=== PATIENT | female | born 1940 | race African-American/Black ===

== ENCOUNTER 2016-05-24 14:37 | Emergency (ER) | payer MEDICARE, OTHER ==
[~2016-05-24] VITALS: Wt 65.0 kg
[~2016-05-24 14:37] MED LIST: IBUP-725
[2016-05-24] MEDS ORDERED: SOD CHLORIDE 0.9% 1,000 ML IV STA (15:15)
[2016-05-24] MEDS ORDERED: ONDANSETRON 4 MG INJ IV STA (15:15)
[2016-05-24] MEDS ORDERED: ALBUTEROL 0.5% (NEB) 2.5 MG/0.5 ML AMP INH STA (15:15)
--- NOTE | 2016-05-24 15:36 | RADRPT ---
PROCEDURE: XR Chest. CLINICAL INDICATION: Abdominal pain. TECHNIQUE: Single frontal view. COMPARISON: None. FINDINGS: The lungs are clear. The heart size is normal. There is calcification in the aorta consistent with atherosclerosis. The re is a calcified right paratracheal lymph node measuring 3 cm in diameter, probably benign. There is no pleural effusion. There is no pneumothorax. IMPRESSION: 1. Atherosclerosis. 2. Clear lungs. 3. Calcified right paratracheal lymph node. Probably benign. 4. Otherwise normal chest x-ray. RPTAT: QQ .Dheeraj Whalen MD, Date Time Electronically viewed and signed by .Dheeraj Whalen MD, on 05/24/2016 15:36 .R/
[2016-05-24 15:38] LABS: BASOPHIL # 0.1 10^3/ul (0.0-0.1); CONDITION 1; EOSINOPHILS # 0.1 10^3/ul (0.0-0.5); EOSINOPHILS % 2.9 % (0.0-7.0); HEMATOCRIT 37.2 % (37.0-47.0); HEMOGLOBIN 12.4 g/dl (12.0-16.0); LH ANALYZER COMMENTS 1; LYMPHOCYTES # 1.6 10^3/ul (0.8-2.9); LYMPHOCYTES % 31.4 % (15.0-51.0); MEAN CORPUSCULAR HGB CONC 33.5 g/dl (32.0-37.0); MEAN CORPUSCULAR VOLUME 89.6 fl (82.0-101.0); MEAN PLATELET VOLUME 8.3 fl (7.4-10.4); MONOCYTE # 0.5 10^3/ul (0.3-0.9); MONOCYTES % 9.5 % (0.0-11.0); NEUTROPHIL # 2.8 10^3/ul (1.6-7.5); NEUTROPHILS % 55.2 % (39.0-77.0); PLATELET COUNT 184 10^3/UL (140-440); RED BLOOD COUNT 4.15 10^6/ul (4.20-5.40); RED CELL DISTRIBUTION WIDTH 14.9 % (11.5-14.5); UNCORRECTED WBC 5.1 10^3/ul (4.8-10.8); WHITE BLOOD COUNT 5.1 10^3/ul (4.8-10.8)
[2016-05-24 15:50] LABS: ALBUMIN 3.9 g/dl (3.3-4.9); CHLORIDE 107 mmol/L (97-110)
[2016-05-24 15:51] LABS: POTASSIUM 3.9 mmol/L (3.5-5.1); SODIUM 144 mmol/L (135-144)
[2016-05-24 15:53] LABS: ALANINE AMINOTRANSFERASE 22 IU/L (13-69); ALBUMIN/GLOBULIN RATIO 1.21; ALKALINE PHOSPHATASE 80 IU/L (42-121); ANION GAP 15 (8-16); ASPARTATE AMINO TRANSFERASE 23 IU/L (15-46); BILIRUBIN,INDIRECT 0.1 mg/dl (0-1.1); BILIRUBIN,TOTAL 0.1 mg/dl (0.2-1.3); BLOOD UREA NITROGEN 10 mg/dl (7-20); CARBON DIOXIDE 26 mmol/L (21-31); CREATININE 0.84 mg/dl (0.44-1.00); TOTAL PROTEIN 7.1 g/dl (6.1-8.1)
[2016-05-24 15:54] LABS: CALCIUM 9.3 mg/dl (8.4-10.2); GLUCOSE 89 mg/dl (70-220)
[2016-05-24 16:03] LABS: B-TYPE NATRIURETIC PEPTIDE 92 PG/ML (0-450)
[2016-05-24 16:06] LABS: TROPONIN-I < 0.012 ng/ml (0.00-0.12)
--- NOTE | 2016-05-24 16:56 | ERD ---
ER Documentation Chief Complaint Date/Time DATE: 05/24/16 TIME: 16:55 Chief Complaint COUGH AND CONGESTION WITH INTERMITTENT FEVERS FOR 1 WEEK HPI 75-year-old woman with multiple complaints including nasal congestion, rhinorrhea, cough, tactile fevers, generalized weakness, and suprapubic discomfort 1 week. She has had no vomiting or diarrhea, no chest pain or shortness of breath, no recent travel or antibiotic use. Patient denies dizziness or loss of consciousness. Patient denies weight loss, melena, or bright red blood per rectum. ROS All systems reviewed and are negative except as per history of present illness. Medications Home Meds Active Scripts Ibuprofen* (Motrin*) 600 Mg Tab, 600 MG PO Q8 for PAIN AND/OR INFLAMMATION, #30 TAB Prov:VENKATESH MELISSA MD 05/24/16 Cephalexin* (Keflex*) 500 Mg Capsule, 500 MG PO TID for 7 Days, CAP Prov:VENKATESH MELISSA MD 05/24/16 Discontinued Reported Medications Ibuprofen (Motrin) 400 Mg Tablet 09/30/09 [None] No Conflict Check 08/19/09 Allergies Allergies: Coded Allergies: Penicillins (Unverified Allergy, Unknown, 05/24/16) Sulfa (Sulfonamide Antibiotics) (Unverified Allergy, Unknown, 05/24/16) PMhx/Soc Generally healthy denies hypertension, diabetes, coronary artery disease History of Surgery: Yes (PITUATARY TUMOR REMOVED 2003,) Anesthesia Reaction: No Hx Neurological Disorder: No Hx Respiratory Disorders: No Hx Cardiac Disorders: No Hx Psychiatric Problems: No Hx Miscellaneous Medical Probl: Yes (PITUATARY TUMOR) Hx Alcohol Use: No Hx Substance Use: No Hx Tobacco Use: No Smoking Status: Never smoker FmHx Family History: No diabetes Physical Exam Vitals Vital Signs Date Time Temp Pulse Resp B/P Pulse Ox O2 Delivery O2 Flow Rate FiO2 05/24/16 17:37 98.5 81 20 128/89 98 Room Air 05/24/16 16:00 98.7 78 20 151/75 100 Nasal Cannula 2.0 05/24/16 15:58 71 20 100 Nasal Cannula 2.0 05/24/16 15:36 Nasal Cannula 2.0 05/24/16 15:36 Nasal Cannula 2 05/24/16 14:47 98.6 78 20 152/68 98 Physical Exam GENERAL: Well-developed, well-nourished, dehydrated HEENT: Dry mucous membranes, pink conjunctiva, no cervical spine tenderness or step-off deformities, no goiter, no jaundice or icterus, extraocular movements intact without pain. No submandibular induration, and no pharyngeal erythema NEURO: Alert and oriented 3, cranial nerves II through XII intact bilaterally, pupils equal round reactive to light, no focal deficits or facial asymmetry, sensation intact distally Strength 5/5 in upper and lower extremities bilaterally CARDIAC: Regular rate and rhythm, no murmurs rubs or gallops LUNGS: Clear bilaterally no wheezing crackles or stridor ABDOMEN: Soft nontender, no guarding, no rigidity, no rebound, no psoas sign no obturator sign. Normoactive bowel sounds SKIN: Warm and dry to touch, no abrasions, contusions, or hematomas, no lacerations, no ecchymosis, no target lesions, and without ulcers EXTREMITIES: No clubbing cyanosis or edema, calves are bilaterally symmetrical, no Homans sign, no popliteal cord sign. Distal pulses equal and bilateral PSYCH: Normal affect without agitation or irritability Result Diagram: 05/24/16 1525 05/24/16 1525 Results 24 hrs Laboratory Tests Test 05/24/16 15:25 05/24/16 17:30 Alanine Aminotransferase (ALT/SGPT) 22IU/L Albumin 3.9g/dl Albumin/Globulin Ratio 1.21 Alkaline Phosphatase 80IU/L Anion Gap 15 Aspartate Amino Transf (AST/SGOT) 23IU/L B-Type Natriuretic Peptide 92PG/ML Basophils # 0.110^3/ul Basophils % 1.0% Blood Morphology Comment Blood Urea Nitrogen 10mg/dl Calcium Level 9.3mg/dl Carbon Dioxide Level 26mmol/L Chloride Level 107mmol/L Creatinine 0.84mg/dl Direct Bilirubin 0.00mg/dl Eosinophils # 0.110^3/ul Eosinophils % 2.9% Globulin 3.20g/dl Glucose Level 89mg/dl Hematocrit 37.2% Hemoglobin 12.4g/dl Indirect Bilirubin 0.1mg/dl Lipase 64U/L Lymphocytes # 1.610^3/ul Lymphocytes % 31.4% Mean Corpuscular Hemoglobin 30.0pg Mean Corpuscular Hemoglobin Concent 33.5g/dl Mean Corpuscular Volume 89.6fl Mean Platelet Volume 8.3fl Monocytes # 0.510^3/ul Monocytes % 9.5% Neutrophils # 2.810^3/ul Neutrophils % 55.2% Nucleated Red Blood Cells # 0.010^3/ul Nucleated Red Blood Cells % 0.0/100WBC Platelet Count 68755^3/UL Potassium Level 3.9mmol/L Red Blood Count 4.1510^6/ul Red Cell Distribution Width 14.9% Sodium Level 144mmol/L Total Bilirubin 0.1mg/dl Total Protein 7.1g/dl Troponin I < 0.012ng/ml White Blood Count 5.110^3/ul Urine Bacteria FEW Urine Bilirubin NEGATIVE Urine Clarity SLIGHTLY CLOUDY Urine Color LT. YELLOW Urine Glucose NEGATIVE% Urine Hemoglobin TRACE Urine Ketones NEGATIVE Urine Leukocyte Esterase 1+ Urine Microscopic RBC 0-2/HPF Urine Microscopic WBC 10-25/HPF Urine Nitrite NEGATIVE Urine Specific [place] <=1.005 Urine Squamous Epithelial Cells MANY Urine Total Protein NEGATIVE Urine Urobilinogen 0.2 E.U./dL Urine pH 5.5 Current Medications Medications (Trade) Dose Ordered Sig/Peyman Route PRN Reason Start Time Stop Time Status Last Admin Dose Admin Albuterol 10 mg 10 mg ONCE STAT INH 05/24/16 15:15 05/24/16 15:17 DC 05/24/16 15:57 Sodium Chloride (NS) 1,000 ml @ 1,000 mls/hr Q1H STAT IV 05/24/16 15:15 05/24/16 16:14 DC 05/24/16 15:35 Ondansetron HCl 4 mg 4 mg ONCE STAT IV 05/24/16 15:15 05/24/16 15:17 DC 05/24/16 15:35 Ceftriaxone Sodium (Rocephin) 50 ml @ 100 mls/hr ONCE ONCE IVPB 05/24/16 18:00 05/24/16 18:29 DC 05/24/16 18:24 Procedures/MDM IV line was established patient was placed on quality assurance monitor body rhythm strip revealed a sinus rhythm at about 60 bpm with upright P and T waves. Patient was afebrile. I administered 1 L normal saline intravenously, albuterol 10 mg via nebulizer for cough, and Zofran 4 mg IV with good response. EKG performed, read by me: 63 bpm, normal sinus rhythm, normal axis, no acute ST segment changes, narrow QRS complex, with good R-wave progression in precordial leads. One AP view of the chest performed, read by me reveals no acute infiltrates, normal mediastinum, sharp costophrenic and cardiac borders, no air under the diaphragm. Otherwise unremarkable chest x-ray. CBC was unremarkable, electrolytes normal, liver function tests were normal, troponin was negative. Urine analysis was concerning for early urinary tract infection. I treated the patient here with ceftriaxone 1 g IV 1. I recommended inpatient management although patient preferred oral antibiotics. She stated she would follow-up with her PMD, which I agreed to. Influenza AB swabs were negative. Differential diagnoses considered, included but not limited to acute coronary syndrome, pulmonary embolism, aortic dissection, abdominal aortic aneurysm, sepsis, stroke, meningitis, encephalitis, pneumonia, appendicitis, cholecystitis , bowel obstruction, pyelonephritis, nephrolithiasis, cystitis, as well as metabolic, hematologic, and electrolyte abnormalities. As well as abscess, cellulitis, fractures, and dislocations. Patient feels much better at this time, and vital signs are normal, symptoms have improved. I did give strict instructions to return to the ED if symptoms continue or worsen, patient will otherwise follow-up with primary care physician. Patient understood instructions and agreed to plan. Departure Diagnosis: Primary Impression: URI (upper respiratory infection) URI type: acute nasopharyngitis (common cold) Qualified Code: J00 - Acute nasopharyngitis Additional Impressions: Dehydration UTI (urinary tract infection) Urinary tract infection type: acute cystitis Hematuria presence: without hematuria Qualified Code: N30.00 - Acute cystitis without hematuria Condition: VENKATESH Sheppard MD May 24, 2016 16:56
[2016-05-24 17:47] LABS: ADD UMIC YES; URINE BILIRUBIN (Dip) NEGATIVE (NEGATIVE); URINE BLOOD (Dip) TRACE (NEGATIVE); URINE COLOR LT. YELLOW (YELLOW); URINE GLUCOSE (Dip) NEGATIVE (NEGATIVE); URINE KETONES (Dip) NEGATIVE (NEGATIVE); URINE LEUKOCYTE ESTERASE (Dip) 1+ (NEGATIVE); URINE NITRITE (Dip) NEGATIVE (NEGATIVE); URINE TOTAL PROTEIN (Dip) NEGATIVE (NEGATIVE); URINE UROBILINOGEN (Dip) 0.2 E.U./dL (0.1-1.0)
[2016-05-24 17:57] LABS: BACTERIA,URINE FEW; SQUAMOUS EPITHELIAL CELL,UR MANY; URINE RBCS 0-2 /HPF (0)
[2016-05-24] MEDS ORDERED: CEFTRIAXONE 1 GM/50 ML (PMX) 50 ML IVPB ONE (18:00)
[2016-05-24] MEDS ORDERED: CEPH-443 PO (18:06)
[2016-05-24] MEDS ORDERED: IBUP-1542 PO (18:06)
[2016-05-24 18:55] VITALS: BP 141/77; PULSE 64; RESP 16; TEMP 98.7
== END 2016-05-24 19:02 | disposition home or self-care (01) ==
LOC: E/R 14:37
DX: J00 Acute nasopharyngitis [common cold] (principal); E86.0 Dehydration; N30.00 Acute cystitis without hematuria; R06.02 Shortness of breath
CPT/HCPCS: 36415; 71010; 80053; 81001; 83690; 83880; 84484; 85025; 87400; 93005; 94644; 96374; 96375; 99285; J0696; J2405; J7030; 81003

== ENCOUNTER 2016-09-20 12:33 | Inpatient (IN) | payer MEDICARE, OTHER ==
[~2016-09-20] VITALS: Ht 165.1 cm; Wt 71.5 kg
[~2016-09-20 12:33] MED LIST changes: +CEPH-443 PO; +IBUP-1542 PO; -IBUP-725
[2016-09-20] MEDS ORDERED: KETOROLAC 15 MG INJ IV STA (13:11)
[2016-09-20] MEDS ORDERED: SOD CHLORIDE 0.9% 500 ML IV STA (13:11)
--- NOTE | 2016-09-20 13:24 | ERA ---
ER Documentation Chief Complaint Date/Time DATE: 09/20/16 TIME: 13:23 Chief Complaint cp x 2 days; sob; nausea HPI 75-year-old woman presents with pressure-like chest pain radiating down the medial aspect of the right arm 2 days. She states the pain is constant associated with intermittent nausea and shortness of breath. She denies cough, no calf or leg swelling, no fevers or chills, no vomiting or diarrhea. Patient denies similar episodes of pain and has never had a cardiac workup. ROS All systems reviewed and are negative except as per history of present illness. Medications Home Meds Reported Medications Aspirin (Low Dose Aspirin) 81 Mg Tablet.dr, 81 MG PO DAILY, #30 TAB 09/20/16 Lisinopril* (Lisinopril*) 5 Mg Tablet, 5 MG PO DAILY, #30 TAB 09/20/16 Alprazolam* (Xanax*) 0.25 Mg Tablet, 0.25 MG PO THREE TIMES A WEEK Y for ANXIETY , TAB 09/20/16 Discontinued Scripts Ibuprofen* (Motrin*) 600 Mg Tab, 600 MG PO Q8 for PAIN AND/OR INFLAMMATION, #30 TAB Prov:VENKATESH MELISSA MD 05/24/16 Cephalexin* (Keflex*) 500 Mg Capsule, 500 MG PO TID for 7 Days, CAP Prov:VENKATESH MELISSA MD 05/24/16 Allergies Allergies: Coded Allergies: Penicillins (Unverified Allergy, Unknown, 09/20/16) Sulfa (Sulfonamide Antibiotics) (Unverified Allergy, Unknown, 09/20/16) PMhx/Soc Sarcoidosis, hepatic hemangiomas, lung nodule, previous pituitary tumor, breast cysts, hypertension History of Surgery: Yes (PITUATARY TUMOR REMOVED 2003,) Anesthesia Reaction: No Hx Neurological Disorder: No Hx Respiratory Disorders: No Hx Cardiac Disorders: No Hx Psychiatric Problems: No Hx Miscellaneous Medical Probl: Yes (PITUATARY TUMOR) Hx Alcohol Use: No Hx Substance Use: No Hx Tobacco Use: No Smoking Status: Never smoker FmHx Family History: No diabetes Physical Exam Vitals Vital Signs Date Time Temp Pulse Resp B/P Pulse Ox O2 Delivery O2 Flow Rate FiO2 09/20/16 13:10 70 18 130/66 99 Room Air 09/20/16 12:38 97.8 83 18 132/61 98 Physical Exam GENERAL: Well-developed, well-nourished, well-hydrated, in no apparent distress , looks nontoxic in appearance HEENT: Moist mucous membranes, pink conjunctiva, no cervical spine tenderness or step-off deformities, no goiter, no jaundice or icterus, extraocular movements intact without pain. No submandibular induration, and no pharyngeal erythema NEURO: Alert and oriented 3, cranial nerves II through XII intact bilaterally, pupils equal round reactive to light, no focal deficits or facial asymmetry, sensation intact distally Strength 5/5 in upper and lower extremities bilaterally CARDIAC: Regular rate and rhythm, no murmurs rubs or gallops LUNGS: Clear bilaterally no wheezing crackles or stridor ABDOMEN: Soft nontender, no guarding, no rigidity, no rebound, no psoas sign no obturator sign. Normoactive bowel sounds SKIN: Warm and dry to touch, no abrasions, contusions, or hematomas, no lacerations, no ecchymosis, no target lesions, and without ulcers EXTREMITIES: No clubbing cyanosis or edema, calves are bilaterally symmetrical, no Homans sign, no popliteal cord sign. Distal pulses equal and bilateral PSYCH: Appears anxious Result Diagram: 09/20/16 1313 09/20/16 1313 Results 24 hrs Laboratory Tests Test 09/20/16 13:13 White Blood Count 3.410^3/ul Red Blood Count 4.2410^6/ul Hemoglobin 12.4g/dl Hematocrit 38.5% Mean Corpuscular Volume 90.8fl Mean Corpuscular Hemoglobin 29.2pg Mean Corpuscular Hemoglobin Concent 32.2g/dl Red Cell Distribution Width 14.2% Platelet Count 86065^3/UL Mean Platelet Volume 10.5fl Neutrophils % 44.2% Lymphocytes % 44.2% Monocytes % 8.3% Eosinophils % 2.4% Basophils % 0.9% Nucleated Red Blood Cells % 0.0/100WBC Neutrophils # 1.510^3/ul Lymphocytes # 1.510^3/ul Monocytes # 0.310^3/ul Eosinophils # 0.110^3/ul Basophils # 0.010^3/ul Nucleated Red Blood Cells # 0.010^3/ul Sodium Level 143mmol/L Potassium Level 3.9mmol/L Chloride Level 106mmol/L Carbon Dioxide Level 25mmol/L Anion Gap 16 Blood Urea Nitrogen 10mg/dl Creatinine 0.88mg/dl Glucose Level 96mg/dl Calcium Level 9.2mg/dl Total Bilirubin 0.2mg/dl Direct Bilirubin 0.00mg/dl Indirect Bilirubin 0.2mg/dl Aspartate Amino Transf (AST/SGOT) 28IU/L Alanine Aminotransferase (ALT/SGPT) 27IU/L Alkaline Phosphatase 84IU/L Troponin I Pending Total Protein 7.5g/dl Albumin 4.1g/dl Globulin 3.40g/dl Albumin/Globulin Ratio 1.20 Lipase 82U/L Current Medications Medications (Trade) Dose Ordered Sig/Peyman Route PRN Reason Start Time Stop Time Status Last Admin Dose Admin Sodium Chloride (NS) 500 ml @ 500 mls/hr Q1H STAT IV 09/20/16 13:11 09/20/16 14:10 DC 09/20/16 13:19 Ketorolac Tromethamine (Toradol) 15 mg ONCE STAT IV 09/20/16 13:11 09/20/16 13:12 DC 09/20/16 13:20 Aspirin (Aspirin) 324 mg ONCE ONCE PO 09/20/16 13:30 09/20/16 13:31 DC 09/20/16 13:20 Procedures/MDM IV line was established patient was placed on residential monitor rhythm strip revealed a sinus rhythm at about 80 bpm with upright P and T waves. Patient was afebrile. I administered 500 cc normal saline intravenously, aspirin 324 mg p.o. cardioprotective measures, and Toradol 15 mg IV for complaints of pain EKG performed, read by me revealed a normal sinus rhythm at 81 bpm, left axis deviation, narrow QRS complex, no concerning ST elevations or depressions noted. One AP view of the chest performed, read by me reveals no acute infiltrates, normal mediastinum, sharp costophrenic and cardiac borders, no air under the diaphragm. Otherwise unremarkable chest x-ray. CBC and electrolytes were normal, liver function tests were normal, troponin is pending I will follow-up. Given the patient's age and risk factors she will be admitted to telemetry setting for continued medical management cardiology consultation. Departure Diagnosis: Primary Impression: Chest pain Qualified Code: R07.9 - Chest pain, unspecified type Condition: VENKATESH Romero MD September 20, 2016 13:24
[2016-09-20] MEDS ORDERED: ASPIRIN 81 MG TAB PO ONE (13:30)
[2016-09-20 13:53] LABS: ADD SCAN DIFF NO
[2016-09-20 13:56] LABS: BASOPHILS % 0.9 % (0.0-2.0); EOSINOPHILS # 0.1 10^3/ul (0.0-0.5); EOSINOPHILS % 2.4 % (0.0-7.0); HEMATOCRIT 38.5 % (37.0-47.0); HEMOGLOBIN 12.4 g/dl (12.0-16.0); LYMPHOCYTES # 1.5 10^3/ul (0.8-2.9); LYMPHOCYTES % 44.2 % (15.0-51.0); MEAN CORPUSCULAR HEMOGLOBIN 29.2 pg (29.0-33.0); MEAN CORPUSCULAR HGB CONC 32.2 g/dl (32.0-37.0); MEAN CORPUSCULAR VOLUME 90.8 fl (82.0-101.0); MEAN PLATELET VOLUME 10.5 fl (7.4-10.4); MONOCYTE # 0.3 10^3/ul (0.3-0.9); MONOCYTES % 8.3 % (0.0-11.0); NEUTROPHIL # 1.5 10^3/ul (1.6-7.5); NEUTROPHILS % 44.2 % (39.0-77.0); PLATELET COUNT 210 10^3/UL (140-415); RED BLOOD COUNT 4.24 10^6/ul (4.20-5.40); RED CELL DISTRIBUTION WIDTH 14.2 % (11.5-14.5); WHITE BLOOD COUNT 3.4 10^3/ul (4.8-10.8)
[2016-09-20] MEDS ORDERED: ALPR0.25 PO (13:57)
[2016-09-20] MEDS ORDERED: LISI-313 PO (13:57)
[2016-09-20] MEDS ORDERED: ASPI-664 PO (13:57)
--- NOTE | 2016-09-20 14:04 | RADRPT ---
PROCEDURE: XR Chest. CLINICAL INDICATION: Pain. TECHNIQUE: Chest x-ray, single view. COMPARISON: 05/24/2016. FINDINGS: The cardiomediastinal silhouette is normal. Mild aortic arch atherosclerotic calcification is prese nt. Densely calcified right paratracheal lymph node is again identified and unchanged. Pulmonary v ascularity is within normal limits. The lungs are clear. Skeletal structures and upper abdomen are unremarkable. IMPRESSION: No radiographic evidence of acute cardiopulmonary pathology. RPTAT: HLST .Mariam York MD, MD Date Time Electronically viewed and signed by .Mariam York MD, MD on 09/20/2016 14:04 .T/
[2016-09-20 14:15] LABS: ALBUMIN 4.1 g/dl (3.3-4.9); CHLORIDE 106 mmol/L (97-110)
[2016-09-20 14:16] LABS: POTASSIUM 3.9 mmol/L (3.5-5.1); SODIUM 143 mmol/L (135-144)
[2016-09-20 14:18] LABS: ANION GAP 16 (8-16); ASPARTATE AMINO TRANSFERASE 28 IU/L (15-46); BILIRUBIN,INDIRECT 0.2 mg/dl (0-1.1); BILIRUBIN,TOTAL 0.2 mg/dl (0.2-1.3); CARBON DIOXIDE 25 mmol/L (21-31); CREATININE 0.88 mg/dl (0.44-1.00); TOTAL PROTEIN 7.5 g/dl (6.1-8.1)
[2016-09-20 14:19] LABS: ALANINE AMINOTRANSFERASE 27 IU/L (13-69); ALKALINE PHOSPHATASE 84 IU/L (42-121); BLOOD UREA NITROGEN 10 mg/dl (7-20); CALCIUM 9.2 mg/dl (8.4-10.2); GLUCOSE 96 mg/dl (70-220)
[2016-09-20] MEDS ORDERED: ALPRAZOLAM 0.25 MG TAB PO PRN (14:30)
[2016-09-20 14:33] LABS: TROPONIN-I < 0.012 ng/ml (0.00-0.12)
--- NOTE | 2016-09-20 14:35 | HP ---
Date/Time of Note Date/Time of Note DATE: 09/20/16 TIME: 14:31 Assessment/Plan VTE Prophylaxis VTE Prophylaxis Intervention: SCD's Assessment/Plan Assessment/Plan 75-year-old female who presents with chest pain managed as follows: 1. Chest pain rule out acute coronary syndrome 2. History of sarcoidosis 3. Status post pituitary tumor resection Plan: * Telemetry admission, trend cardiac enzymes, 2d echo if none recently and possible cardiology consult for stress test. * oxygen and nitroglycerin therapy as needed. * Daily aspirin if no allergy or bleeding risk. * Get lipid profile, magnesium and TSH levels in am. * Further interventions per clinical course * Plan of care has been discussed with patient, questions have been answered. Prophylaxis: SCDs and PPI HPI/ROS Admit Date/Time Admit Date/Time September 20, 2016 Hx of Present Illness PRESENTING COMPLAINT: chest pain HISTORY OF PRESENTING COMPLAINT: This is a 75-year-old female with a past medical history of high blood pressure and sarcoidosis who came to the ER complaining of mediastinal chest pain that radiates to her right arm.. Pain is said to have been going on for about 1 day and is described as pressure. Pain is said to have been worsening in intensity since yesterday. Patient can unknown name any aggravating or relieving factors. She denies fever cough or shortness of breath. She denies diaphoresis. She denies abdominal pain black stools or blood in her stools. She denies palpitations or syncope. ROS ROS: CONSTITUTIONAL: denies fever, chills, weight loss, weight gain HEENT: denies headaches, any vertigo, any sore throat or rhinorrhea. Eyes: No double or blurred vision or eye pain. GASTROINTESTINAL: The patient denies any nausea, vomiting, diarrhea or abdominal pain. GENITOURINARY: denies dysuria, frequency, urgency or hematuria. MUSCULOSKELETAL: also denies myalgias, arthralgias or edema. SKIN: denies rash or jaundice NEUROLOGIC: denies weakness, dizziness, focal neurological change or headache. PSYCHIATRIC: denies history of depression in the past, any suicidal ideation. substance abuse. ENDOCRINE: denies polyuria, polydipsia or hot or cold intolerance. HEMATOLOGIC: denies history of easy bruising, anemia or eczema. PMH/Family/Social Past Medical History 1. Pituitary tumor status post resection 2. Right breast cyst 3. Sarcoidosis Past Surgical History 1. Hysterectomy 2. Breast cyst removal 3. Pituitary tumor removal Family History Significant Family History: no pertinent family hx Social History Alcohol Use: none Smoking Status: Never smoker Drug Use: none Exam/Review of Systems Vital Signs Vitals VS - Last 72 Hours, by Label Date Time Temp Pulse Resp B/P Pulse Ox O2 Delivery O2 Flow Rate FiO2 09/20/16 13:10 70 18 130/66 99 Room Air 09/20/16 12:38 97.8 83 18 132/61 98 Vital Signs Date Time Temp Pulse Resp B/P Pulse Ox O2 Delivery O2 Flow Rate FiO2 09/20/16 13:10 70 18 130/66 99 Room Air 09/20/16 12:38 97.8 Exam Exam GENERAL: Patient is alert, oriented x 3, in no apparent distress; does not appear acutely or chronically ill. Patient is able to sit up unassisted.Patient makes good eye contact, is conversant, interactive, coherent. Patient appears calm and comfortable and is able to follow commands. HEENT: Oropharynx is clear. There is no carotid bruit, no masses. Patient's pupils are equal, round and reactive to light bilaterally. Extraocular motions are intact. There is no scleral icterus. There is no facial asymmetry. NECK: Supple. LUNGS: Clear to auscultation bilaterally with good air entry. No Wheezes or crackles. HEART: S1, S2. No murmur, gallops or rubs. Regular rate and rhythm. ABDOMEN: Soft, nontender. Normoactive bowel sounds. There are no stigmata of chronic liver disease. BACK: no costovertebral angle tenderness. GENITOURINARY: Deferred. EXTREMITIES: No edema. There is no cyanosis, clubbing. There are 2+ pulses bilaterally distally. NEUROLOGIC: The patient has no lateralizing signs. Cranial nerves II-XII are intact. SKIN: Otherwise, unremarkable. Labs Result Diagram: 09/20/16 1313 09/20/16 1313 Medications Medications Current Medications Alprazolam (Xanax) 0.25 mg DAILY PRN PO ANXIETY; Start 09/20/16 at 14:30; Status UNV Aspirin (Halfprin) 81 mg DAILY PO ; Start 09/21/16 at 09:00; Status UNV Lisinopril (Zestril) 5 mg DAILY PO ; Start 09/21/16 at 09:00; Status UNV Famotidine (Pepcid) 20 mg BID PO ; Start 09/20/16 at 14:30; Status UNV Procedures Procedures Laboratory Tests Test 09/20/16 13:13 White Blood Count 3.410^3/ul Red Blood Count 4.2410^6/ul Hemoglobin 12.4g/dl Hematocrit 38.5% Mean Corpuscular Volume 90.8fl Mean Corpuscular Hemoglobin 29.2pg Mean Corpuscular Hemoglobin Concent 32.2g/dl Red Cell Distribution Width 14.2% Platelet Count 84616^3/UL Mean Platelet Volume 10.5fl Neutrophils % 44.2% Lymphocytes % 44.2% Monocytes % 8.3% Eosinophils % 2.4% Basophils % 0.9% Nucleated Red Blood Cells % 0.0/100WBC Neutrophils # 1.510^3/ul Lymphocytes # 1.510^3/ul Monocytes # 0.310^3/ul Eosinophils # 0.110^3/ul Basophils # 0.010^3/ul Nucleated Red Blood Cells # 0.010^3/ul Sodium Level 143mmol/L Potassium Level 3.9mmol/L Chloride Level 106mmol/L Carbon Dioxide Level 25mmol/L Anion Gap 16 Blood Urea Nitrogen 10mg/dl Creatinine 0.88mg/dl Glucose Level 96mg/dl Calcium Level 9.2mg/dl Total Bilirubin 0.2mg/dl Direct Bilirubin 0.00mg/dl Indirect Bilirubin 0.2mg/dl Aspartate Amino Transf (AST/SGOT) 28IU/L Alanine Aminotransferase (ALT/SGPT) 27IU/L Alkaline Phosphatase 84IU/L Troponin I Pending Total Protein 7.5g/dl Albumin 4.1g/dl Globulin 3.40g/dl Albumin/Globulin Ratio 1.20 Lipase 82U/L PROCEDURE: XR Chest. CLINICAL INDICATION: Pain. TECHNIQUE: Chest x-ray, single view. COMPARISON: 05/24/2016. FINDINGS: The cardiomediastinal silhouette is normal. Mild aortic arch atherosclerotic calcification is present. Densely calcified right paratracheal lymph node is again identified and unchanged. Pulmonary vascularity is within normal limits. The lungs are clear. Skeletal structures and upper abdomen are unremarkable. IMPRESSION: No radiographic evidence of acute cardiopulmonary pathology. RPTAT: HLST .Mariam York MD, MD Date Time Electronically viewed and signed by .Mariam York MD, MD on 09/20/2016 14:04 .T/ CC: VENKATESH MELISSA MD I reviewed EKG Rate: Within normal limits Rhythm: sinus Note: No ST elevation or depressions noted concerning for acute ischemic event. HO STRONG September 20, 2016 14:35
[2016-09-20] MEDS: FAMOTIDINE 20 MG TAB PO SCH ×2 (15:26→21:02)
[2016-09-20 16:18] VITALS: Ht 165.1 cm; Wt 71.5 kg
[2016-09-20 16:19] VITALS: BP 134/62; PULSE 76; RESP 20
[2016-09-20 16:43] VITALS: PULSE 60
[2016-09-20] MEDS ORDERED: morphine 2 MG INJ IV PRN (18:00)
[2016-09-20 20:00] VITALS: BP 110/55; RESP 16
[2016-09-20 20:31] VITALS: PULSE 58
[2016-09-20] MEDS: DOCUSATE SODIUM 100 MG CAP PO SCH (21:02)
--- NOTE | 2016-09-20 21:04 | RADRPT ---
Echocardiogram Report Patient Name: TODD MCGRATH Gender: Female Date: 1940 Study Date: 20-Sep-2016 Singe Winder: MARISELA Zapata.[facility] Location: [facility] Ref. Physician: HO STRONG Quality: Adequate Procedures: Transthoracic echocardiogram with complete 2D, M-Mode, and doppler examination. Indications: Chest Pain. 2D/M Mode Doppler Measurement Value Normal Ranges Measurement Value Normal Ranges LVIDd 2D 3.6 3.5 - 5.6 cm FRANCA Vmax 2.5 cm2 LVIDs 2D 1.8 2.1 - 4.1 cm AV Peak López 1.5 m/sec FS 2D 49.3 % AV Peak PG 9.0 mmHg LVPWd 2D 1.2 0.6 - 1.1 cm LVOT Peak López 1.2 m/sec IVSd 2D 1.2 0.6 - 1.1 cm LVOT Peak PG 5.0 mmHg IVS/LVPW 2D 1.0 MV E Peak López 0.8 m/sec AoR Diam 2D 2.4 2.0 - 3.7 cm MV A Peak López 0.9 m/sec LA/Ao 2D 2 0 - 1 MV E/A 0.9 EDV 2D 45.5 cm3 MV Decel Time 261 msec ESV 2D 5.9 cm3 MV E/A 0.9 LA Dimen 2D 3.6 2.3 - 4.0 cm TR Peak López 2.7 m/sec LVOT Diam 2.0 cm TR Peak PG 28.0 mmHg LVOT Area 3.1 cm2 RVSP 31.0 mmHg Findings Left Ventricle: Normal left ventricular systolic function. Normal left ventricular cavity size. Mild concentric left ventricular hypertrophy. Ejection fraction is visually estimated at 6065 %. Tissue Doppler/Mitral Doppler indices are consistent with impaired relaxation (Stage I diastolic dysfunction). Right Ventricle: Normal right ventricular size. Normal right ventricular systolic function. Left Atrium: The left atrium is normal in size. Right Atrium: The right atrium is normal in size. Mitral Valve: Mild mitral leaflet calcification. Mild mitral annular calcification. Moderate mitral valve regurgitation. Aortic Valve: Normal appearance of the aortic valve. No significant aortic stenosis or insufficiency. Tricuspid Valve: Normal appearance of the tricuspid valve. Estimated peak PA systolic pressure 31 mmHg. There is mild to moderate tricuspid regurgitation. Pulmonic Valve: Pulmonic valve not well visualized. Pericardium: Normal pericardium with no significant pericardial effusion. Aorta: Normal aortic root. IVC: Normal size and normal respiratory collapse consistent with normal right atrial pressure. Conclusions 1.Normal left ventricular systolic function. Normal left ventricular cavity size. Mild concentric left ventricular hypertrophy. Ejection fraction is visually estimated at 60-65 %. Tissue Doppler/Mitral Doppler indices are consistent with impaired relaxation (Stage I diastolic dysfunction). 2.Mild mitral leaflet calcification. Mild mitral annular calcification. Moderate mitral valve regurgitation. 3.Normal appearance of the tricuspid valve. Estimated peak PA systolic pressure 31 mmHg. There is mild to moderate tricuspid regurgitation. Electronically Signed By: Rory Navarrete 20-Sep-2016 21:04:01 -0700 Patient Name: TODD MCGRATH Study Date: 20-Sep-2016 [id number]
[2016-09-20 21:05] LABS: CREATINE KINASE 67 IU/L (23-200)
[2016-09-20 21:08] VITALS: BP 101/51; PULSE 57
[2016-09-20 21:19] LABS: CK-MB 0.57 ng/ml (0.0-2.4)
[2016-09-20 21:25] LABS: TROPONIN-I < 0.012 ng/ml (0.00-0.12)
[2016-09-21] VITALS (13 sets, daily range): BP systolic 98–122; BP diastolic 46–72; PULSE 55–59; RESP 16–20
[2016-09-21 02:50] LABS: CREATINE KINASE 66 IU/L (23-200)
[2016-09-21 03:00] LABS: CK-MB 0.57 ng/ml (0.0-2.4)
[2016-09-21 03:07] LABS: TROPONIN-I < 0.012 ng/ml (0.00-0.12)
[2016-09-21 07:24] LABS: ADD SCAN DIFF NO
[2016-09-21 07:35] LABS: BASOPHILS % 0.8 % (0.0-2.0); EOSINOPHILS # 0.2 10^3/ul (0.0-0.5); EOSINOPHILS % 5.6 % (0.0-7.0); HEMATOCRIT 35.7 % (37.0-47.0); HEMOGLOBIN 11.7 g/dl (12.0-16.0); LYMPHOCYTES % 51.4 % (15.0-51.0); MEAN CORPUSCULAR HEMOGLOBIN 29.5 pg (29.0-33.0); MEAN CORPUSCULAR HGB CONC 32.8 g/dl (32.0-37.0); MEAN CORPUSCULAR VOLUME 90.2 fl (82.0-101.0); MEAN PLATELET VOLUME 10.3 fl (7.4-10.4); MONOCYTE # 0.4 10^3/ul (0.3-0.9); MONOCYTES % 10.4 % (0.0-11.0); NEUTROPHIL # 1.3 10^3/ul (1.6-7.5); NEUTROPHILS % 31.8 % (39.0-77.0); PLATELET COUNT 202 10^3/UL (140-415); RED BLOOD COUNT 3.96 10^6/ul (4.20-5.40); RED CELL DISTRIBUTION WIDTH 13.9 % (11.5-14.5); WHITE BLOOD COUNT 3.9 10^3/ul (4.8-10.8)
[2016-09-21] MEDS ORDERED: ASPIRIN (EC) 81 MG TAB PO SCH (09:00)
[2016-09-21] MEDS: DOCUSATE SODIUM 100 MG CAP PO SCH ×2 (09:12→20:39)
[2016-09-21] MEDS: FAMOTIDINE 20 MG TAB PO SCH ×2 (09:13→20:39)
[2016-09-21] MEDS: ASPIRIN (EC) 81 MG TAB PO SCH (09:13)
[2016-09-21] MEDS: LISINOPRIL 5 MG TAB PO SCH (09:13)
[2016-09-21 10:05] LABS: CALCIUM 9.1 mg/dl (8.4-10.2); CHOL/HDL RATIO 4.1 RATIO; CREATININE 0.88 mg/dl (0.44-1.00); INR 0.95; MAGNESIUM 1.9 mg/dl (1.7-2.5); PARTIAL THROMBOPLASTIN TIME 30.9 Sec (25.0-35.0); POTASSIUM 3.8 mmol/L (3.5-5.1); PROTIME 12.7 Sec (12.2-14.2)
[2016-09-21 10:37] LABS: THYROID STIMULATING HORMONE 1.32 MIU/L (0.465-4.680)
--- NOTE | 2016-09-21 12:53 | CONS ---
Date/Time of Note Date/Time of Note DATE: 09/21/16 TIME: 12:45 Assessment/Plan Assessment/Plan Additional Assessment/Plan Acute anemia History of gastric ulcers Evaluate GI bleed versus chronic iron deficiency vs other etiology Stool OB, if positive strongly recommend EGD Monitor H&H every 8 hours, transfuse 2 units for hemoglobin less than 7.[address] abdomen Continue PPI therapy Recommend EGD, pt advised of R/B/A to procedure and has not decided whether or not if she will provide informed consent to proceed Hematochezia/history of colon polyp Recommend colonoscopy, pt advised of R/B/A to procedure and has not decided whether or not if she will provide informed consent to proceed Chest pain Cardiology following Further recommendations depend on clinical course Patient seen in collaboration with Dr. Edwards Consultation Date/Type/Reason Admit Date/Time September 20, 2016 Mrs.Myrtis Avitia is a 75-year-old woman that presented to the ED for further evaluation of chest pain, nausea and shortness of breath. Patient denies history of hypertension and hypertensive medication. During intake, patient noted history of blood in stool a few days ago but she thinks is likely secondary to hemorrhoids in addition to remote history of melena stools. Patient reports EGD 7 years ago and gastric ulcers were found. Patient also reports history of colon polyps from colonoscopy 10 years ago. Patient denies family history of colon cancer. At bedside patient denies abdominal pain. She reports intermittent nausea, but is tolerating clear diet. Patient would like to think about getting EGD and colonoscopy. She presently prefers to have procedures as outpatient; however, she states that she will consider inpatient and will let hr business partner consultant know tomorrow. Past Medical History Medical History: other (History of colon polyps and gastric ulcers) Social History Alcohol Use: none Smoking Status: Former smoker Drug Use: none Exam/Review of Systems Vital Signs Vitals Vital Signs Date Time Temp Pulse Resp B/P Pulse Ox O2 Delivery O2 Flow Rate FiO2 09/21/16 11:08 98.3 62 18 107/54 99 09/20/16 15:17 Room Air Intake and Output 09/20/16 09/20/16 09/21/16 15:00 23:00 07:00 Intake Total 600 ml 700 ml Balance 600 ml 700 ml Exam Constitutional: alert, oriented, well developed Psych: nl mood/affect Head: normocephalic Eyes: EOMI, nl conjunctiva, nl lids ENMT: nl external ears & nose, nl lips & teeth, nl nasal mucosa & septum Respiratory: clear to auscultation, normal air movement Cardiovascular: regular rate and rhythm Gastrointestinal: soft, non-tender Musculoskeletal: nl extremities to inspection Neurological: TRAVEL ADMINISTRATOR II-XII intact Results Result Diagram: 09/21/16 0655 09/21/16 0915 Results 24 hrs Laboratory Tests Test 09/20/16 13:13 09/20/16 20:30 09/21/16 02:12 09/21/16 06:55 White Blood Count 3.4 #L 3.9 L Red Blood Count 4.24 3.96 L Hemoglobin 12.4 11.7 L Hematocrit 38.5 35.7 L Mean Corpuscular Volume 90.8 90.2 Mean Corpuscular Hemoglobin 29.2 29.5 Mean Corpuscular Hemoglobin Concent 32.2 32.8 Red Cell Distribution Width 14.2 13.9 Platelet Count 210 202 Mean Platelet Volume 10.5 #H 10.3 Neutrophils % 44.2 31.8 L Lymphocytes % 44.2 51.4 H Monocytes % 8.3 10.4 Eosinophils % 2.4 5.6 Basophils % 0.9 0.8 Nucleated Red Blood Cells % 0.0 0.0 Neutrophils # 1.5 L 1.3 L Lymphocytes # 1.5 2.0 Monocytes # 0.3 0.4 Eosinophils # 0.1 0.2 Basophils # 0.0 0.0 Nucleated Red Blood Cells # 0.0 0.0 Sodium Level 143 Potassium Level 3.9 Chloride Level 106 Carbon Dioxide Level 25 Anion Gap 16 Blood Urea Nitrogen 10 Creatinine 0.88 Glucose Level 96 Calcium Level 9.2 Total Bilirubin 0.2 Direct Bilirubin 0.00 Indirect Bilirubin 0.2 Aspartate Amino Transf (AST/SGOT) 28 Alanine Aminotransferase (ALT/SGPT) 27 Alkaline Phosphatase 84 Troponin I < 0.012 < 0.012 < 0.012 Total Protein 7.5 Albumin 4.1 Globulin 3.40 H Albumin/Globulin Ratio 1.20 Lipase 82 Creatine Kinase 67 66 Creatine Kinase Index 0.9 0.9 Creatinine Kinase MB (Mass) 0.57 0.57 Test 09/21/16 09:15 Prothrombin Time 12.7 Prothrombin Time Ratio 1.0 INR International Normalized Ratio 0.95 Activated Partial Thromboplast Time 30.9 Sodium Level 139 Potassium Level 3.8 Chloride Level 109 Carbon Dioxide Level 24 Anion Gap 10 # Blood Urea Nitrogen 10 Creatinine 0.88 Glucose Level 123 Calcium Level 9.1 Magnesium Level 1.9 Triglycerides Level 164 H Cholesterol Level 171 LDL Cholesterol, Calculated 97 HDL Cholesterol 41 Cholesterol/HDL Ratio 4.1 Thyroid Stimulating Hormone (TSH) 1.320 Medications Medications Current Medications Alprazolam (Xanax) 0.25 mg Q24H PRN PO ANXIETY; Start 09/20/16 at 14:30 Lisinopril (Zestril) 5 mg DAILY PO Last administered on 09/21/16 09:13; Admin Dose 5 MG; Start 09/21/16 at 09:00 Famotidine (Pepcid) 20 mg BID PO Last administered on 09/21/16 09:13; Admin Dose 20 MG; Start 09/20/16 at 14:30 Aspirin (Halfprin) 81 mg DAILY PO Last administered on 09/21/16 09:13; Admin Dose 81 MG; Start 09/21/16 at 09:00 Docusate Sodium (Colace) 100 mg BID PO Last administered on 09/21/16 09:12; Admin Dose 100 MG; Start 09/20/16 at 21:00 Morphine Sulfate (morphine) 2 mg Q4H PRN IV pain; Start 09/20/16 at 18:00 YU BUI September 21, 2016 12:52
[2016-09-21] MEDS ORDERED: BARIUM SULF 2% 450 ML BTL (BERRY SMOOTHIE) PO ONE (13:30)
--- NOTE | 2016-09-21 14:55 | PN ---
Date/Time of Note Date/Time of Note DATE: 09/21/16 TIME: 14:52 Assessment/Plan VTE Prophylaxis VTE Prophylaxis Intervention: SCD's Lines/Catheters IV Catheter Type (from Nrs): Saline Lock Assessment/Plan Assessment/Plan 1. Chest pain, atypical, negative troponin, follow up with cardiology 2. Sarcoidosis, stable 3. Status post pituitary tumor resection 4. Hypertension, controlled Subjective 24 Hr Interval Summary Free Text/Dictation no chest pain today Exam/Review of Systems Vital Signs Vitals Vital Signs Date Time Temp Pulse Resp B/P Pulse Ox O2 Delivery O2 Flow Rate FiO2 09/21/16 12:46 59 09/21/16 11:08 98.3 18 107/54 99 09/20/16 15:17 Room Air Intake and Output 09/20/16 09/20/16 09/21/16 15:00 23:00 07:00 Intake Total 600 ml 700 ml Balance 600 ml 700 ml Exam Constitutional: alert, oriented, well developed Psych: nl mood/affect, no complaints Head: atraumatic, normocephalic Eyes: EOMI, PERRL, nl conjunctiva, nl lids ENMT: nl external ears & nose, nl lips & teeth, nl nasal mucosa & septum Neck: non-tender, supple Respiratory: clear to auscultation, normal air movement, No congested cough, No crackles/rales, No diminished breath sounds, No intercostal retraction, No labored breathing, No other, No respirations, No tactile fremitus, No wheezing Cardiovascular: nl pulses, regular rate and rhythm, No S3, No S4, No bruits, No diastolic murmur, No edema, No gallop, No irregular rhythm, No jugular venous distention (JVD), No murmurs/extra sounds, No other, No rub, No systolic murmur Gastrointestinal: nl liver, spleen, non-tender, soft, No ascites, No bowel sounds, No distended, No firm, No hepatomegaly, No mass , No other, No rebound or guarding, No splenomegaly, No surgical scars, No tender Musculoskeletal: nl extremities to inspection Extremities: normal pulses, No calf tenderness, No clubbing, No cyanosis, No edema, No other, No palpable cord, No pitting pedal edema, No tenderness Neurological: BLACKSMITH APPRENTICE II-XII intact, nl mental status, nl speech, nl strength Skin: nl turgor Lymph: nl lymph nodes Results Result Diagram: 09/21/16 0655 09/21/16 0915 Results 24 hrs Laboratory Tests Test 09/20/16 20:30 09/21/16 02:12 09/21/16 06:55 09/21/16 09:15 Creatine Kinase 67 66 Creatine Kinase Index 0.9 0.9 Creatinine Kinase MB (Mass) 0.57 0.57 Troponin I < 0.012 < 0.012 White Blood Count 3.9 L Red Blood Count 3.96 L Hemoglobin 11.7 L Hematocrit 35.7 L Mean Corpuscular Volume 90.2 Mean Corpuscular Hemoglobin 29.5 Mean Corpuscular Hemoglobin Concent 32.8 Red Cell Distribution Width 13.9 Platelet Count 202 Mean Platelet Volume 10.3 Neutrophils % 31.8 L Lymphocytes % 51.4 H Monocytes % 10.4 Eosinophils % 5.6 Basophils % 0.8 Nucleated Red Blood Cells % 0.0 Neutrophils # 1.3 L Lymphocytes # 2.0 Monocytes # 0.4 Eosinophils # 0.2 Basophils # 0.0 Nucleated Red Blood Cells # 0.0 Prothrombin Time 12.7 Prothrombin Time Ratio 1.0 INR International Normalized Ratio 0.95 Activated Partial Thromboplast Time 30.9 Sodium Level 139 Potassium Level 3.8 Chloride Level 109 Carbon Dioxide Level 24 Anion Gap 10 # Blood Urea Nitrogen 10 Creatinine 0.88 Glucose Level 123 Calcium Level 9.1 Magnesium Level 1.9 Triglycerides Level 164 H Cholesterol Level 171 LDL Cholesterol, Calculated 97 HDL Cholesterol 41 Cholesterol/HDL Ratio 4.1 Thyroid Stimulating Hormone (TSH) 1.320 Medications Medications Current Medications Alprazolam (Xanax) 0.25 mg Q24H PRN PO ANXIETY; Start 09/20/16 at 14:30 Lisinopril (Zestril) 5 mg DAILY PO Last administered on 09/21/16 09:13; Admin Dose 5 MG; Start 09/21/16 at 09:00 Famotidine (Pepcid) 20 mg BID PO Last administered on 09/21/16 09:13; Admin Dose 20 MG; Start 09/20/16 at 14:30 Aspirin (Halfprin) 81 mg DAILY PO Last administered on 09/21/16 09:13; Admin Dose 81 MG; Start 09/21/16 at 09:00 Docusate Sodium (Colace) 100 mg BID PO Last administered on 09/21/16t 09:12; Admin Dose 100 MG; Start 09/20/16 at 21:00 Morphine Sulfate (morphine) 2 mg Q4H PRN IV pain; Start 09/20/16 at 18:00 SUMEET PEREZ MD September 21, 2016 14:55
[2016-09-21 16:49] LABS: ADD UMIC NO; URINE BILIRUBIN (Dip) NEGATIVE (NEGATIVE); URINE BLOOD (Dip) NEGATIVE (NEGATIVE); URINE COLOR LT. YELLOW (YELLOW); URINE GLUCOSE (Dip) NEGATIVE (NEGATIVE); URINE KETONES (Dip) NEGATIVE (NEGATIVE); URINE LEUKOCYTE ESTERASE (Dip) NEGATIVE (NEGATIVE); URINE NITRITE (Dip) NEGATIVE (NEGATIVE); URINE TOTAL PROTEIN (Dip) NEGATIVE (NEGATIVE); URINE UROBILINOGEN (Dip) 0.2 E.U./dL (0.1-1.0)
[2016-09-21] MEDS ORDERED: NITROGLYCERIN (SL) 0.4 MG TAB SL PRN (18:00)
[2016-09-22] VITALS (9 sets, daily range): BP systolic 83–130; BP diastolic 35–58; PULSE 63–75; RESP 16–18
--- NOTE | 2016-09-22 03:43 | CONS ---
DATE OF ADMISSION: 09/21/2016 DATE OF CONSULTATION: 09/21/2016 REASON FOR CONSULTATION: Chest pain, assess for acute coronary syndrome. REQUESTING PHYSICIAN: Dr. Topete from the hospitalist service. HISTORY OF PRESENT ILLNESS: Ms. Avitia is a very pleasant 75-year-old female with history of hypert ension, sarcoidosis who presented with complaints of right-sided chest pain described as a stabbing to burning sensation, intermittent, at rest. Upon arrival in the emergency department, temperature 97.8, blood pressure 132/61, pulse 82, respirations 18, saturating 98%. The patient's labs revealed a white count 3.4, hemoglobin 12.4, platelet count 210. Sodium 143, potassium 3.9, creatinine 0.8, BUN 10. Troponin negative. TSH 1.32. LDL 97, HDL 41. INR 0.95. UA negative. The patient under went a chest x-ray revealing no acute cardiopulmonary abnormalities. The patient's electrocardiogra m revealed normal sinus rhythm, rate of 81 with left axis deviation, mild inferior T-wave flattening . The patient was subsequently admitted to the floor and since admit to the floor has had a total o f 3 negative troponins, ruling her out for acute myocardial infarction. The patient underwent a 2D echo interpreted by myself, revealing a preserved left ventricular ejection fraction of approximatel y 60% to 65% with mild to moderate tricuspid regurgitation and moderate mitral regurgitation. Addit ionally, the patient given complaints and history of gastric ulcers was consulted by GI, with recomm endations for patient to undergo endoscopy. PAST MEDICAL HISTORY: As above in HPI. MEDICATIONS CURRENTLY IN HOSPITAL 1. Lisinopril 5 mg daily. 2. Aspirin 81 mg daily. 3. Colace 100 mg daily. 4. Morphine 2 mg p.r.n. 5. Pepcid 20 mg p.o. b.i.d. 6. Xanax p.r.n. ALLERGIES: 1. PENICILLIN. 2. SULFA. SOCIAL HISTORY: No current tobacco, quit x20 to 30 years ago, smoked for 10 years. Social ETOH, ra rely. No illicit drug use. FAMILY HISTORY: No history of sudden cardiac or early CAD. REVIEW OF SYSTEMS: As above in HPI. CONSTITUTIONAL: No fevers, chills. PULMONARY: No current shortness of breath. CARDIOVASCULAR: Intermittent chest pain. GASTROINTESTINAL: No vomiting. GENITOURINARY: No hematuria. MUSCULOSKELETAL: Degenerative joint disease. PSYCHIATRIC: The patient denies depression. NEUROLOGIC: No documented history of CVA. PHYSICAL EXAMINATION VITAL SIGNS: Temperature 97.6, blood pressure currently low at 90/46, pulse 69, respiratory 18, sat ting 92%. GENERAL: The patient is alert, awake, in no acute distress. NECK: JVP approximately 8 to 9 cm water. CHEST: Fair air movement throughout. HEART: Bradycardic, regular rhythm, normal S1, S2, I/ systolic murmur, nondisplaced PMI. ABDOMEN: Positive bowel sounds, soft. EXTREMITIES: No pitting edema, 1+ pulses bilaterally, posterior tibial. LABORATORY DATA: As above in HPI, with most recent from today, sodium 139, potassium 3.8, creatinin e 0.88, BUN 10. Troponin negative x3. LDL 87, HDL 47. White blood cell count 3.9, hemoglobin 11.7 , platelet count 202. IMAGING STUDIES: As above in HPI. No further imaging studies for my review at this time. ECG: As above in HPI. No further electrocardiograms for my review at this time. IMPRESSION: 1. Chest pain, status post acute coronary syndrome with a somewhat atypical symptomatology at this time for cardiac etiology with negative troponins x3 and normal EF by echo. 2. Diastolic dysfunction by echo this admit with no current signs of heart failure. 3. Hypertension with currently borderline hypotension. 4. Anemia. 5. History of gastric ulcers. RECOMMENDATIONS: 1. At this time, would maintain the patient on telemetry to follow rhythm and rate control closely. 2. Continue the patient's aspirin as tolerated, but if patient truly has history of gastric ulcers, would hold aspirin. 3. Continue the patient's current Pepcid with possible need to increase to a PPI. 4. Continue the patient's low-dose Zestril, following somewhat labile blood pressure closely. 5. We will consider p.r.n. sublingual nitroglycerin for recurrent episode chest pain. 6. Possible need for endoscopy. 7. If the patient continues to remain chest pain free and is to not undergo endoscopy, then at that time, the patient would be reasonable for discharge with further outpatient followup including outp atient stress testing which has been communicated to the patient and given contact information to shar snell in my office. Thank you for allowing me to take part in the care of this patient. I will continue to follow along very closely with you. Further recommendations will be made as the patient progresses through her inpatient hospital clinical course. Dictated By: CARLITOS HUNT/ARASH Conf#: [id number] DID#: [id number] CC: Yoselyn; HO STRONG MD;*End*
[2016-09-22] MEDS ORDERED: ALPRAZOLAM 0.25 MG TAB PO ONE (05:00)
[2016-09-22 09:02] LABS: ADD SCAN DIFF NO
[2016-09-22 09:11] LABS: BASOPHILS % 0.9 % (0.0-2.0); EOSINOPHILS # 0.1 10^3/ul (0.0-0.5); EOSINOPHILS % 2.8 % (0.0-7.0); HEMATOCRIT 36.2 % (37.0-47.0); HEMOGLOBIN 11.6 g/dl (12.0-16.0); LYMPHOCYTES % 46.3 % (15.0-51.0); MEAN CORPUSCULAR HEMOGLOBIN 29.4 pg (29.0-33.0); MEAN CORPUSCULAR VOLUME 91.6 fl (82.0-101.0); MEAN PLATELET VOLUME 10.7 fl (7.4-10.4); MONOCYTE # 0.5 10^3/ul (0.3-0.9); MONOCYTES % 10.7 % (0.0-11.0); NEUTROPHIL # 1.7 10^3/ul (1.6-7.5); NEUTROPHILS % 39.1 % (39.0-77.0); PLATELET COUNT 201 10^3/UL (140-415); RED BLOOD COUNT 3.95 10^6/ul (4.20-5.40); RED CELL DISTRIBUTION WIDTH 14.1 % (11.5-14.5); WHITE BLOOD COUNT 4.3 10^3/ul (4.8-10.8)
--- NOTE | 2016-09-22 09:29 | RADRPT ---
PROCEDURE: CT abdomen and pelvis without contrast. CLINICAL INDICATION: Change in bowel habits. Colonic polyps. TECHNIQUE: CT scan of the abdomen and pelvis without contrast was performed and is reconstructed a t 2.5 mm contiguous axial intervals from the dome of the diaphragm to the inferior pubic rami.. The patient was scanned without intravenous contrast. Sagittal and coronal reformatted images were obt ained from the axial source images. The calculated radiation dose measures 441 mGy centimeters. The CTDI measures 8 mGy. COMPARISON: None. FINDINGS: The lung bases are clear of any infiltrate or nodule. No effusion is seen. The liver is enlarged measuring 18.5 cm it is of normal contour. No ductal dilatation is present. There are multiple indeterminate solid masses seen, the largest of which extends from the central le ft lobe into the caudate measuring approximately 5 cm in diameter. Smaller masses are seen in the ri ght lobe. No gas is visualized in these masses.. There are stones layering in the dependent portio n of the gallbladder. No adrenal or pancreatic abnormalities present. spleen is not enlarged. Ther e are calcified granulomata. Kidneys are of normal size. No hydronephrosis, calculus or solid masses seen. There is a 5 cm exo phytic cortical cyst on the lateral aspect of the left kidney. Ureters are of normal course and joe iber with no stone. No bladder mass or stone is present. Uterus is been removed. There is no adnex al mass. There is no aneurysm. No adenopathy is present. No bowel mass or obstruction is present. There are a few scattered colonic diverticula. The append ix is normal. No phlegmon, ascites or pneumoperitoneum is visualized. No lytic or blastic lesions are visualized. There is a mild chronic superior endplate compression f racture of L1. Degenerative disk disease is present at L5-S1. There is mild osteoarthritis of the right hip joint. IMPRESSION: No bowel mass or obstruction is visualized. Multiple indeterminate solid noncalcified hepatic masses. Although this may represent benign entiti es such as multiple hemangiomas, other etiologies including metastatic disease cannot be ruled out. Consider dynamic postcontrast CT or MRI for more definitive diagnosis. Alternatively, these masses are amendable to CT or ultrasound guided biopsy if clinically indicated. Hepatomegaly. Cholelithiasis. Left renal cyst. Chronic mild superior endplate compression fracture L1. Degenerative disk disease L5-S1. Mild oste oarthritis right hip. Diverticulosis. Post hysterectomy. .Robert Puckett MD, Date Time Electronically viewed and signed by .Robert Puckett MD, on 09/22/2016 09:29 .A/
[2016-09-22] MEDS: DOCUSATE SODIUM 100 MG CAP PO SCH (09:54)
[2016-09-22] MEDS: FAMOTIDINE 20 MG TAB PO SCH (09:54)
[2016-09-22] MEDS: ASPIRIN (EC) 81 MG TAB PO SCH (09:54)
[2016-09-22 09:56] LABS: CALCIUM 9.2 mg/dl (8.4-10.2); CREATININE 0.84 mg/dl (0.44-1.00); POTASSIUM 4.5 mmol/L (3.5-5.1)
--- NOTE | 2016-09-22 10:19 | PN ---
Date/Time of Note Date/Time of Note DATE: 09/22/16 TIME: 10:12 Assessment/Plan VTE Prophylaxis VTE Prophylaxis Intervention: ambulation Lines/Catheters [facility] Saline Lock Assessment/Plan Assessment/Plan Assessment * Chest pain R/O acute coronary syndrome vs GERD vs PUD * History of gastric ulcers * History of sarcoidosis * S/P Pituitary tumor resection Plan * EGD but patient is still thinking about it but no colonoscopy * continue present management Subjective 24 Hr Interval Summary Free Text/Dictation * Course reviewed with RN * patient seen and examined * denies any chest pain * still thinking about planned EGD but refuses colonoscopy Exam/Review of Systems Vital Signs Vitals Vital Signs Date Time Temp Pulse Resp B/P Pulse Ox O2 Delivery O2 Flow Rate FiO2 09/22/16 08:35 73 09/22/16 07:20 98.2 17 98/43 95 09/20/16 15:17 Room Air Intake and Output 09/21/16 09/21/16 09/22/16 15:00 23:00 07:00 Intake Total 800 ml 600 ml Output Total 800 ml Balance 0 ml 600 ml Exam Constitutional: alert, oriented Psych: no complaints Eyes: nl conjunctiva, nl sclera Neck: non-tender, supple Respiratory: clear to auscultation, normal air movement Cardiovascular: nl pulses, regular rate and rhythm Gastrointestinal: bowel sounds, nl liver, spleen, non-tender, soft Musculoskeletal: nl extremities to inspection, nl gait and stance Extremities: normal pulses Results Result Diagram: 09/22/16 0720 09/22/16 0720 Results 24 hrs Laboratory Tests Test 09/21/16 16:00 09/22/16 07:20 Urine Color LT. YELLOW Urine Clarity CLEAR Urine pH 6.5 Urine Specific Dodge <=1.005 L Urine Ketones NEGATIVE Urine Nitrite NEGATIVE Urine Bilirubin NEGATIVE Urine Urobilinogen 0.2 E.U./dL Urine Leukocyte Esterase NEGATIVE Urine Hemoglobin NEGATIVE Urine Glucose NEGATIVE Urine Total Protein NEGATIVE White Blood Count 4.3 L Red Blood Count 3.95 L Hemoglobin 11.6 L Hematocrit 36.2 L Mean Corpuscular Volume 91.6 Mean Corpuscular Hemoglobin 29.4 Mean Corpuscular Hemoglobin Concent 32.0 Red Cell Distribution Width 14.1 Platelet Count 201 Mean Platelet Volume 10.7 H Neutrophils % 39.1 Lymphocytes % 46.3 Monocytes % 10.7 Eosinophils % 2.8 Basophils % 0.9 Nucleated Red Blood Cells % 0.0 Neutrophils # 1.7 Lymphocytes # 2.0 Monocytes # 0.5 Eosinophils # 0.1 Basophils # 0.0 Nucleated Red Blood Cells # 0.0 Sodium Level 138 Potassium Level 4.5 Chloride Level 110 Carbon Dioxide Level 22 Anion Gap 11 Blood Urea Nitrogen 12 Creatinine 0.84 Glucose Level 80 # Calcium Level 9.2 Medications Medications Current Medications Alprazolam (Xanax) 0.25 mg Q24H PRN PO ANXIETY Last administered on 09/21/16 18:14; Admin Dose 0.25 MG; Start 09/20/16 at 14:30 Lisinopril (Zestril) 5 mg DAILY PO Last administered on 09/21/16 09:13; Admin Dose 5 MG; Start 09/21/16 at 09:00 Famotidine (Pepcid) 20 mg BID PO Last administered on 09/22/16 09:54; Admin Dose 20 MG; Start 09/20/16 at 14:30 Aspirin (Halfprin) 81 mg DAILY PO Last administered on 09/22/16 09:54; Admin Dose 81 MG; Start 09/21/16 at 09:00 Docusate Sodium (Colace) 100 mg BID PO Last administered on 09/22/16 09:54; Admin Dose 100 MG; Start 09/20/16 at 21:00 Morphine Sulfate (morphine) 2 mg Q4H PRN IV pain; Start 09/20/16 at 18:00 Nitroglycerin (Nitroglycerin (Sl Tab) 0.4 Mg) 1 tab Q5M PRN SL ANGINA; Start at 18:00 LILI SAWYER MD September 22, 2016 10:19
[2016-09-22] MEDS: LISINOPRIL 5 MG TAB PO SCH (11:15)
[2016-09-22] MEDS ORDERED: SOD CHLORIDE 0.9% 1,000 ML IV ONE (11:30)
--- NOTE | 2016-09-22 12:38 | CONS ---
Date/Time of Note Date/Time of Note DATE: 09/22/16 TIME: 12:35 Assessment/Plan Assessment/Plan Additional Assessment/Plan Atypical chest pain Hypertension Moderate Mitral regurgitation Anemia GI Ulcers' Echo normal EF with no segmental wall motion abnormality Continue Zestril Continue ASA Continue GI and DVT Prophylaxis Cleared for endoscopy Consultation Date/Type/Reason Admit Date/Time September 20, 2016 Psychological: no complaints Past Medical History Medical History: other (History of colon polyps and gastric ulcers) Social History Alcohol Use: none Smoking Status: Former smoker Drug Use: none Exam/Review of Systems Vital Signs Vitals Vital Signs Date Time Temp Pulse Resp B/P Pulse Ox O2 Delivery O2 Flow Rate FiO2 09/22/16 12:23 75 09/22/16 11:16 98.3 18 83/35 94 09/20/16 15:17 Room Air Intake and Output 09/21/16 09/21/16 09/22/16 15:00 23:00 07:00 Intake Total 800 ml 600 ml Output Total 800 ml Balance 0 ml 600 ml Exam Constitutional: alert, oriented Psych: no complaints Head: atraumatic, normocephalic Respiratory: clear to auscultation Cardiovascular: regular rate and rhythm Gastrointestinal: nl liver, spleen, non-tender, soft Extremities: normal pulses Results Result Diagram: 09/22/16 0720 09/22/16 0720 Results 24 hrs Laboratory Tests Test 09/21/16 16:00 09/22/16 07:20 Urine Color LT. YELLOW Urine Clarity CLEAR Urine pH 6.5 Urine Specific [place] <=1.005 L Urine Ketones NEGATIVE Urine Nitrite NEGATIVE Urine Bilirubin NEGATIVE Urine Urobilinogen 0.2 E.U./dL Urine Leukocyte Esterase NEGATIVE Urine Hemoglobin NEGATIVE Urine Glucose NEGATIVE Urine Total Protein NEGATIVE White Blood Count 4.3 L Red Blood Count 3.95 L Hemoglobin 11.6 L Hematocrit 36.2 L Mean Corpuscular Volume 91.6 Mean Corpuscular Hemoglobin 29.4 Mean Corpuscular Hemoglobin Concent 32.0 Red Cell Distribution Width 14.1 Platelet Count 201 Mean Platelet Volume 10.7 H Neutrophils % 39.1 Lymphocytes % 46.3 Monocytes % 10.7 Eosinophils % 2.8 Basophils % 0.9 Nucleated Red Blood Cells % 0.0 Neutrophils # 1.7 Lymphocytes # 2.0 Monocytes # 0.5 Eosinophils # 0.1 Basophils # 0.0 Nucleated Red Blood Cells # 0.0 Sodium Level 138 Potassium Level 4.5 Chloride Level 110 Carbon Dioxide Level 22 Anion Gap 11 Blood Urea Nitrogen 12 Creatinine 0.84 Glucose Level 80 # Calcium Level 9.2 Medications Medications Current Medications Alprazolam (Xanax) 0.25 mg Q24H PRN PO ANXIETY Last administered on 09/21/16 18:14; Admin Dose 0.25 MG; Start 09/20/16 at 14:30 Lisinopril (Zestril) 5 mg DAILY PO Last administered on 09/21/16 09:13; Admin Dose 5 MG; Start 09/21/16 at 09:00 Famotidine (Pepcid) 20 mg BID PO Last administered on 09/22/16 09:54; Admin Dose 20 MG; Start 09/20/16 at 14:30 Aspirin (Halfprin) 81 mg DAILY PO Last administered on 09/22/16 09:54; Admin Dose 81 MG; Start 09/21/16 at 09:00 Docusate Sodium (Colace) 100 mg BID PO Last administered on 09/22/16 09:54; Admin Dose 100 MG; Start 09/20/16 at 21:00 Morphine Sulfate (morphine) 2 mg Q4H PRN IV pain; Start 09/20/16 at 18:00 Nitroglycerin (Nitroglycerin (Sl Tab) 0.4 Mg) 1 tab Q5M PRN SL ANGINA; Start at 18:00 RAGINI OLIVARES M.D. September 22, 2016 12:38
--- NOTE | 2016-09-22 14:27 | PN ---
Date/Time of Note Date/Time of Note DATE: 09/22/16 TIME: 14:26 Assessment/Plan Lines/Catheters IV Catheter Type (from Nrsg): Peripheral IV Assessment/Plan Assessment/Plan 1. Chest pain, atypical, negative troponin, follow up with cardiology 2. Sarcoidosis, stable 3. Status post pituitary tumor resection 4. Hypertension, controlled 5. Black stools with streaks of blood in stool with hx of Anemia / GI Ulcers' 6. Moderate Mitral regurgitation Exam/Review of Systems Vital Signs Vitals Vital Signs Date Time Temp Pulse Resp B/P Pulse Ox O2 Delivery O2 Flow Rate FiO2 09/22/16 12:23 75 09/22/16 11:16 98.3 18 83/35 94 09/20/16 15:17 Room Air Intake and Output 09/21/16 09/21/16 09/22/16 15:00 23:00 07:00 Intake Total 800 ml 600 ml Output Total 800 ml Balance 0 ml 600 ml Results Result Diagram: 09/22/1620 09/22/16 0720 Results 24 hrs Laboratory Tests Test 09/21/16 16:00 09/22/16 07:20 Urine Color LT. YELLOW Urine Clarity CLEAR Urine pH 6.5 Urine Specific [place] <=1.005 L Urine Ketones NEGATIVE Urine Nitrite NEGATIVE Urine Bilirubin NEGATIVE Urine Urobilinogen 0.2 E.U./dL Urine Leukocyte Esterase NEGATIVE Urine Hemoglobin NEGATIVE Urine Glucose NEGATIVE Urine Total Protein NEGATIVE White Blood Count 4.3 L Red Blood Count 3.95 L Hemoglobin 11.6 L Hematocrit 36.2 L Mean Corpuscular Volume 91.6 Mean Corpuscular Hemoglobin 29.4 Mean Corpuscular Hemoglobin Concent 32.0 Red Cell Distribution Width 14.1 Platelet Count 201 Mean Platelet Volume 10.7 H Neutrophils % 39.1 Lymphocytes % 46.3 Monocytes % 10.7 Eosinophils % 2.8 Basophils % 0.9 Nucleated Red Blood Cells % 0.0 Neutrophils # 1.7 Lymphocytes # 2.0 Monocytes # 0.5 Eosinophils # 0.1 Basophils # 0.0 Nucleated Red Blood Cells # 0.0 Sodium Level 138 Potassium Level 4.5 Chloride Level 110 Carbon Dioxide Level 22 Anion Gap 11 Blood Urea Nitrogen 12 Creatinine 0.84 Glucose Level 80 # Calcium Level 9.2 Medications Medications Current Medications Alprazolam (Xanax) 0.25 mg Q24H PRN PO ANXIETY Last administered on 09/21/16 18:14; Admin Dose 0.25 MG; Start 09/20/16 at 14:30 Lisinopril (Zestril) 5 mg DAILY PO Last administered on 09/21/16 09:13; Admin Dose 5 MG; Start 09/21/16 at 09:00 Famotidine (Pepcid) 20 mg BID PO Last administered on 09/22/16 09:54; Admin Dose 20 MG; Start 09/20/16 at 14:30 Aspirin (Halfprin) 81 mg DAILY PO Last administered on 09/22/16 09:54; Admin Dose 81 MG; Start 09/21/16 at 09:00 Docusate Sodium (Colace) 100 mg BID PO Last administered on 09/22/16 09:54; Admin Dose 100 MG; Start 09/20/16 at 21:00 Morphine Sulfate (morphine) 2 mg Q4H PRN IV pain; Start 09/20/16 at 18:00 Nitroglycerin (Nitroglycerin (Sl Tab) 0.4 Mg) 1 tab Q5M PRN SL ANGINA; Start at 18:00 HO STRONG September 22, 2016 14:27
[2016-09-22] MEDS ORDERED: PANT40TA3 PO (16:32)
--- NOTE | 2016-09-22 16:33 | PDOCDIS ---
Discharge Instructions DIAGNOSIS Discharge Diagnosis: Chest pain, possibly GI bleed CONDITION Patient Condition: Stable HOME CARE INSTRUCTIONS: Diet Instructions: Low Fat /Cholesterol ACTIVITY: Activity Restrictions: Slowly Increase Activity Rest between Activity FOLLOW UP/APPOINTMENTS Appointments If you change your mind about getting an endoscopy, please let your primary care doctor know. It will help figure out why you are having black stools and some bloody stool. OTHER ORDERS: Other Orders: Followup with your primary doctor within the next 1-2 weeks. If you don't have one please let someone know, we can give you resources that may help you pick one. You may call Dr Benoit Garcia's office. he's accepting new patients Name, Degree: Benoit Garcia MD Specialty: Internal Medicine Comments: Office Address: [address] [place] [address] Office Office You may also call your insurance company to assign one to you. Review your medication list with your nurse before leaving and if you need new prescriptions please let your nurse know. I may have made changes to your home medications or given you new prescriptions , please let your primary doctor know as well. Stay compliant with your medications and report any side effects to your PCP or pharmacist. Return to the ER if you have any concerns and cannot reach your doctors or call your insurance company, they usually have a nurse that can help you. HO STRONG September 22, 2016 16:33
--- NOTE | 2016-09-22 17:23 | DS ---
Date/Time of Note Date/Time of Note DATE: 09/22/16 TIME: 17:16 Discharge Summary Admission/Discharge Info Admit Date/Time September 21, 2016 at 12:32 Discharge Date/Time September 22, 2016 Final Diagnosis 1. Chest pain, atypical acute coronary syndrome has been ruled out: 2. Sarcoidosis, stable 3. Status post pituitary tumor resection 4. Hypertension, controlled 5. Black stools with streaks of blood in stool with hx of Anemia / GI Ulcers': Patient refused endoscopy 6. Moderate Mitral regurgitation: Stable 7. Chronic hepatic hemangiomas which per patient is secondary to #2 as well as a chronic lung nodule. Consults * Cardiology: Landon: * Gastroenterology: Miov . Hx of Present Illness PRESENTING COMPLAINT: chest pain HISTORY OF PRESENTING COMPLAINT: This is a 75-year-old female with a past medical history of high blood pressure and sarcoidosis who came to the ER complaining of mediastinal chest pain that radiates to her right arm.. Pain is said to have been going on for about 1 day and is described as pressure. Pain is said to have been worsening in intensity since yesterday. Patient can unknown name any aggravating or relieving factors. She denies fever cough or shortness of breath. She denies diaphoresis. She denies abdominal pain black stools or blood in her stools. She denies palpitations or syncope. . Hospital Course Ms. Avitia was admitted, and ruled out for an acute coronary syndrome with 3 sets of cardiac enzymes that came back negative.She had a chest x-ray September 20, 2016 that was negative and a CT of the abdomen was done September 21, 2016 that showed multiple indeterminate solid noncalcified hepatic masses hepatomegaly, cholelithiasis, left renal cyst, a chronic mild compression fracture in L1 and diverticulosis without diverticulitis. This was ordered by GI who reviewed her for possible endoscopy for her black stools. These findings were discussed with the patient who assured us that there were chronic and declined further intervention. We also recommended both upper and lower endoscopy to evaluate occasional black stools and streaks of blood in her stool, however patient declined this multiple times as well. She was started on twice daily PPI therapy. She was also being seen by cardiology who did not feel that any further risk stratification was required for her cardiac workup. They did recommend that she could get an outpatient stress test however. And at this time they have cleared her for discharge. Patient has had no further chest pain Comorbidities were also aggressively managed as per Med records. Patient at this time has been evaluated and examined in detail and is assessed to be in stable condition and ready for discharge. Home Meds Active Scripts Pantoprazole* (Protonix*) 40 Mg Tablet.dr, 40 MG PO BID for 30 Days, TAB 1 Refill Prov:HO STRONG 09/22/16 Reported Medications Aspirin (Low Dose Aspirin) 81 Mg Tablet.dr, 81 MG PO DAILY, #30 TAB 09/20/16 Lisinopril* (Lisinopril*) 5 Mg Tablet, 5 MG PO DAILY, #30 TAB 09/20/16 Alprazolam* (Xanax*) 0.25 Mg Tablet, 0.25 MG PO THREE TIMES A WEEK Y for ANXIETY , TAB 09/20/16 Discontinued Scripts Ibuprofen* (Motrin*) 600 Mg Tab, 600 MG PO Q8 for PAIN AND/OR INFLAMMATION, #30 TAB Prov:VENKATESH MELISSA MD 05/24/16 Cephalexin* (Keflex*) 500 Mg Capsule, 500 MG PO TID for 7 Days, CAP Prov:VENKATESH MELISSA MD 05/24/16 Follow-up Plan Patient is to follow-up with her external grinder Dr. Parry and PCP. . Primary Care Provider Bentley Parry MD Time spent on discharge: > 30 minutes Pending Labs Laboratory Tests Test 09/22/16 07:20 White Blood Count 4.310^3/ul (4.8-10.8) Red Blood Count 3.9510^6/ul (4.20-5.40) Hemoglobin 11.6g/dl (12.0-16.0) Hematocrit 36.2% (37.0-47.0) Mean Corpuscular Volume 91.6fl (82.0-101.0) Mean Corpuscular Hemoglobin 29.4pg (29.0-33.0) Mean Corpuscular Hemoglobin Concent 32.0g/dl (32.0-37.0) Red Cell Distribution Width 14.1% (11.5-14.5) Platelet Count 50328^3/UL (140-415) Mean Platelet Volume 10.7fl (7.4-10.4) Neutrophils % 39.1% (39.0-77.0) Lymphocytes % 46.3% (15.0-51.0) Monocytes % 10.7% (0.0-11.0) Eosinophils % 2.8% (0.0-7.0) Basophils % 0.9% (0.0-2.0) Nucleated Red Blood Cells % 0.0/100WBC (0.0-0.0) Neutrophils # 1.710^3/ul (1.6-7.5) Lymphocytes # 2.010^3/ul (0.8-2.9) Monocytes # 0.510^3/ul (0.3-0.9) Eosinophils # 0.110^3/ul (0.0-0.5) Basophils # 0.010^3/ul (0.0-0.1) Nucleated Red Blood Cells # 0.010^3/ul (0.0-0.0) Sodium Level 138mmol/L (135-144) Potassium Level 4.5mmol/L (3.5-5.1) Chloride Level 110mmol/L (97-110) Carbon Dioxide Level 22mmol/L (21-31) Anion Gap 11 (8-16) Blood Urea Nitrogen 12mg/dl (7-20) Creatinine 0.84mg/dl (0.44-1.00) Glucose Level 80mg/dl (70-220) Calcium Level 9.2mg/dl (8.4-10.2) HO STRONG September 22, 2016 17:23
--- NOTE | 2016-09-22 17:23 | PDOCDIS ---
Discharge Instructions DIAGNOSIS Discharge Diagnosis: Chest pain CONDITION Patient Condition: Stable HOME CARE INSTRUCTIONS: Diet Instructions: Low Fat /Cholesterol (SOFT DIET.)Special Diet: NONE. ACTIVITY: Activity Restrictions: No Restrictions Slowly Increase Activity Rest between Activity OTHER ORDERS: Other Orders: Please followup with Dr Navarrete for cardiology Name, Degree: Rory Navarrete MD Specialty: Cardiology Comments: Office Address: [address] [place] [address] Office Office Dye Jig Operator: HO Jc September 22, 2016 17:23
--- NOTE | 2016-09-25 00:23 | RADRPT ---
Vent Rate: 61 bpm RR Interval: 0 msec [place] Interval: 160 msec QRS Duration: 84 msec QT Interval: 422 msec QTC Interval: 424 msec P-R-T [place]: 43 - -2 - 46 degrees Normal sinus rhythm Normal ECG Electronically Signed By: Rory Navarrete [id number]
== END 2016-09-22 17:25 | disposition home or self-care (01) | DRG 313 ==
LOC: E/R 12:33 → MS4 16:07 → OBSVTOIN 09-21 12:32
PROVIDERS: ADMIT Family Medicine; ATTEND Family Medicine
DX: R07.9 Chest pain, unspecified (principal); D86.9 Sarcoidosis, unspecified; I34.0 Nonrheumatic mitral (valve) insufficiency; D64.9 Anemia, unspecified; I10 Essential (primary) hypertension; D18.09 Hemangioma of other sites
CPT/HCPCS: 36415; 71010; 74176; 80048; 80053; 80061; 81003; 82550; 82553; 83690; 83735; 84443; 84484; 85025; 85610; 85730; 93005; 93306; 96374; G0378; J1885; J2270; J7030; J7040